=== PATIENT | female | born 1990 | race African-American/Black ===

== ENCOUNTER 2016-06-21 19:44 | Emergency (ER) | payer SELFPAY ==
[~2016-06-21] VITALS: Ht 165.1 cm; Wt 77.1 kg
[~2016-06-21 19:44] MED LIST: CIPR500T94 PO; NAPR550T PO; ONDA4TAB10 SL; PANT20TA2 PO
[2016-06-21 20:07] VITALS: BP 122/70
--- NOTE | 2016-06-21 21:07 | PHYS DOC ---
Past Medical History Past Medical History: Asthma, Bronchitis Past Surgical History: No Surgical History Alcohol Use: None Drug Use: None Adult General Chief Complaint Chief Complaint: RIB PAIN [facility] HPI Patient is a 26 year old female who presents with bilateral rib pain for one day. Denies cough, shortness of breath, chest pain, paliptations, syncope, dizziness. States pain increases with mvmt. Also request test, has had two postiive at home. LMP 04/11/16. No interventions prior to arrival. Review of Systems Review of Systems Constitutional: Denies fever or chills [] Eyes: Denies change in visual acuity, redness, or eye pain [] HENT: Denies nasal congestion or sore throat [] Respiratory: Denies cough or shortness of breath [] Cardiovascular: No additional information not addressed in HPI [] GI: Denies abdominal pain, nausea, vomiting, bloody stools or diarrhea [] : Denies dysuria or hematuria [] Musculoskeletal: Denies back pain or joint pain. Rib pain [] Integument: Denies rash or skin lesions [] Neurologic: Denies headache, focal weakness or sensory changes [] Endocrine: Denies polyuria or polydipsia [] Allergies Allergies Allergies Coded Allergies Type Severity Reaction Last Updated Verified Penicillins Allergy Intermediate 08/06/14 No Physical Exam Physical Exam Constitutional: Well developed, well nourished, no acute distress, non-toxic appearance. HENT: Normocephalic, atraumatic, bilateral external ears normal, oropharynx moist, no oral exudates, nose normal. Eyes: PERRLA, EOMI, conjunctiva normal, no discharge. Neck: Normal range of motion, no tenderness, supple, no stridor. Cardiovascular:Heart rate regular rhythm, no murmur Lungs & Thorax: Bilateral breath sounds clear to auscultation. tenderness to palpation just below both breast at bra line. Abdomen: Bowel sounds normal, soft, no tenderness, no masses, no pulsatile masses. [] Skin: Warm, dry, no erythema, no rash. [] Back: No tenderness, no CVA tenderness. [] Extremities: No tenderness, no cyanosis, no clubbing, ROM intact, no edema. [] Neurologic: Alert and oriented X 3, normal motor function, normal sensory function, no focal deficits noted. [] Psychologic: Affect normal, judgement normal, mood normal. [] Current Patient Data Vital Signs Vital Signs Date Time Temp Pulse Resp B/P Pulse Ox O2 Delivery O2 Flow Rate FiO2 06/21/16 20:07 98.2 75 16 122/70 99 Room Air 98.2 Lab Values Laboratory Tests Test 06/21/16 20:21 POC Urine HCG, Qualitative Hcg positive (Negative) EKG EKG [] Radiology/Procedures Radiology/Procedures [] Impressions: 1. RIb pain 2. Positive urine Course & Med Decision Making Course & Med Decision Making Pertinent Labs and Imaging studies reviewed. (See chart for details) [] Dragon Disclaimer Dragon Disclaimer This electronic medical record was generated, in whole or in part, using a voice recognition dictation system. Departure Departure Impression: Primary Impression: Rib pain Additional Impression: Positive urine test Disposition: HOME, SELF-CARE Condition: STABLE Referrals: NO PCP (PCP) Patient Instructions: Musculoskeletal Pain Additional Instructions: Follow up with primary doctor in 1-2 days. Return if any problems, concerns, shortness or air, chest pain. May take Tylenol as directed for pain Problem Qualifiers EDIE PINO APRN Jun 21, 2016 21:07
== END 2016-06-21 21:18 | disposition home or self-care (01) ==
LOC: ER 19:44
DX: O26.899 Other specified pregnancy related conditions, unspecified trimester (principal); R07.81 Pleurodynia; O99.519 Diseases of the respiratory system complicating pregnancy, unspecified trimester; J45.909 Unspecified asthma, uncomplicated; Z88.0 Allergy status to penicillin; Z3A.00 Weeks of gestation of pregnancy not specified
CPT/HCPCS: 81025; 99282

== ENCOUNTER 2016-07-16 16:10 | Emergency (ER) | payer SELFPAY ==
[~2016-07-16] VITALS: Ht 165.1 cm; Wt 74.8 kg
--- NOTE | 2016-07-16 17:14 | RAD ---
EXAM: Obstetric sonogram. HISTORY: Pain. TECHNIQUE: Sonographic imaging of the pelvis was performed. COMPARISON: None. FINDINGS: The uterus measures 13.0 x 9.8 x 12.0 cm. There is an intrauterine gestational sac with pole. The crown-rump length is 7.6 cm, corresponding with an estimated gestational age of 13 weeks and 5 days. The heart rate is 158 bpm. The right ovary measures 5.1 x 2.7 x 2.1 cm and demonstrates normal blood flow. The left ovary is obscured due to bowel gas. IMPRESSION: 1. Single intrauterine fetus with an estimated gestational age of 13 weeks and 5 days and heart rate of 158 bpm. 2. Obscured left ovary. 3. Unremarkable right ovary.
[2016-07-16 17:44] LABS: BASO % 0 % (0-3); EOS % 2 % (0-3); HEMATOCRIT 34.2 % (36.0-47.0); HEMOGLOBIN 11.4 g/dL (12.0-15.5); LYMPH # 2.1 x10^3/uL (1.0-4.8); LYMPH % 26 % (24-48); MEAN CORPUSCULAR HEMOGLOBIN 28 pg (25-35); MEAN CORPUSCULAR HGB CONC 33 g/dL (31-37); MEAN CORPUSCULAR VOLUME 82 fL (79-100); MONO % 5 % (0-9); NEUT % 67 % (31-73); PLATELET COUNT 271 x10^3/uL (140-400); RED BLOOD COUNT 4.15 x10^6/uL (3.50-5.40); RED CELL DISTRIBUTION WIDTH 16.6 % (11.5-14.5); WHITE BLOOD COUNT 8.3 x10^3/uL (4.0-11.0)
[2016-07-16 17:50] LABS: BILIRUBIN,URINE NEGATIVE (NEG); GLUCOSE,URINE NEGATIVE (NEG); NITRITE,URINE NEGATIVE (NEG); PROTEIN,URINE NEGATIVE (NEG-TRACE); UROBILINOGEN,URINE 0.2 mg/dL (0.2 mg/dL)
[2016-07-16 18:00] LABS: BACTERIA,URINE MODERATE /HPF (0-FEW); RBC,URINE 0 /HPF (0-2); SQUAMOUS EPITHELIAL CELL,UR MOD /LPF
[2016-07-16 18:09] LABS: CALCIUM 9.3 mg/dL (8.5-10.1); CREATININE 0.6 mg/dL (0.6-1.0); GFR 147.4; POTASSIUM 3.5 mmol/L (3.5-5.1)
[2016-07-16 18:50] VITALS: BP 107/75
[2016-07-16] MEDS ORDERED: NITR100C62 PO (19:02)
--- NOTE | 2016-07-16 19:02 | PHYS DOC ---
Past Medical History Past Medical History: Asthma, Bronchitis Past Surgical History: No Surgical History Alcohol Use: None Drug Use: None Adult General Chief Complaint Chief Complaint: ABDOMINAL PAIN IN [facility] HPI 26-year-old female who is an estimated 13 weeks gestation is had some mild lower abdominal pain that she localizes somewhat to the right lower quadrant. She denies any nausea or vomiting. She denies any fever or chills. She denies any significant dysuria or hematuria. She denies any vaginal bleeding. He has history of asthma but no known health problems otherwise. Review of Systems Review of Systems Constitutional: Denies fever or chills [] Eyes: Denies change in visual acuity, redness, or eye pain [] HENT: Denies nasal congestion or sore throat [] Respiratory: Denies cough or shortness of breath [] Cardiovascular: No additional information not addressed in HPI [] GI: Has abdominal pain, denies nausea, denies vomiting, denies bloody stools or diarrhea [] : Denies dysuria or hematuria [] Musculoskeletal: Denies back pain or joint pain [] Integument: Denies rash or skin lesions [] Neurologic: Denies headache, focal weakness or sensory changes [] Endocrine: Denies polyuria or polydipsia [] Allergies Allergies Allergies Coded Allergies Type Severity Reaction Last Updated Verified Penicillins Allergy Intermediate 08/06/14 No Physical Exam Physical Exam Constitutional: Well developed, well nourished, no acute distress, non-toxic appearance. [] HENT: Normocephalic, atraumatic, bilateral external ears normal, oropharynx moist, no oral exudates, nose normal. [] Eyes: PERRLA, EOMI, conjunctiva normal, no discharge. [] Neck: Normal range of motion, no tenderness, supple, no stridor. [] Cardiovascular:Heart rate regular rhythm, no murmur [] Lungs & Thorax: Bilateral breath sounds clear to auscultation [] Abdomen: Bowel sounds normal, soft, has right lower quadrant tenderness, no masses, no pulsatile masses. [] Skin: Warm, dry, no erythema, no rash. [] Back: No tenderness, no CVA tenderness. [] Extremities: No tenderness, no cyanosis, no clubbing, ROM intact, no edema. [] Neurologic: Alert and oriented X 3, normal motor function, normal sensory function, no focal deficits noted. [] Psychologic: Affect normal, judgement normal, mood normal. [] Current Patient Data Vital Signs Vital Signs Date Time Temp Pulse Resp B/P Pulse Ox O2 Delivery O2 Flow Rate FiO2 07/16/16 18:50 82 107/75 96 07/16/16 17:20 Room Air 07/16/16 16:26 98.1 18 98.1 Lab Values Laboratory Tests Test 07/16/16 15:56 07/16/16 16:50 07/16/16 17:30 POC Urine HCG, Qualitative Hcg positive (Negative) Urine Collection Type Unknown Urine Color Straw Urine Clarity Clear Urine pH 7.0 Urine Specific [place] <=1.005 Urine Protein Negativemg/dL (NEG-TRACE) Urine Glucose (UA) Negativemg/dL (NEG) Urine Ketones (Stick) Negativemg/dL (NEG) Urine Blood Negative (NEG) Urine Nitrite Negative (NEG) Urine Bilirubin Negative (NEG) Urine Urobilinogen Dipstick 0.2mg/dL (0.2 mg/dL) Urine Leukocyte Esterase Large (NEG) Urine RBC 0/HPF (0-2) Urine WBC 11-20/HPF (0-4) Urine Squamous Epithelial Cells Mod/LPF Urine Bacteria Moderate/HPF (0-FEW) White Blood Count 8.3x10^3/uL (4.0-11.0) Red Blood Count 4.15x10^6/uL (3.50-5.40) Hemoglobin 11.4g/dL (12.0-15.5) L Hematocrit 34.2% (36.0-47.0) L Mean Corpuscular Volume 82fL (79-100) Mean Corpuscular Hemoglobin 28pg (25-35) Mean Corpuscular Hemoglobin Concent 33g/dL (31-37) Red Cell Distribution Width 16.6% (11.5-14.5) H Platelet Count 271x10^3/uL (140-400) Neutrophils (%) (Auto) 67% (31-73) Lymphocytes (%) (Auto) 26% (24-48) Monocytes (%) (Auto) 5% (0-9) Eosinophils (%) (Auto) 2% (0-3) Basophils (%) (Auto) 0% (0-3) Neutrophils # (Auto) 5.6x10^3uL (1.8-7.7) Lymphocytes # (Auto) 2.1x10^3/uL (1.0-4.8) Monocytes # (Auto) 0.4x10^3/uL (0.0-1.1) Eosinophils # (Auto) 0.1x10^3/uL (0.0-0.7) Basophils # (Auto) 0.0x10^3/uL (0.0-0.2) Maternal Serum HCG Beta Subunit 81588sSQ/mL (0-6) H Sodium Level 137mmol/L (136-145) Potassium Level 3.5mmol/L (3.5-5.1) Chloride Level 103mmol/L (98-107) Carbon Dioxide Level 24mmol/L (21-32) Anion Gap 10 (6-14) Blood Urea Nitrogen 7mg/dL (7-20) Creatinine 0.6mg/dL (0.6-1.0) Estimated GFR (Cockcroft-Gault) 147.4 Glucose Level 106mg/dL (70-99) H Calcium Level 9.3mg/dL (8.5-10.1) Laboratory Tests 07/16/16 17:30 Laboratory Tests 07/16/16 17:30 Microbiology 07/16/16 Urine Culture - Preliminary, Resulted 07/16/16 Urine Culture Result 1 (NATHEN) - Preliminary, Resulted EKG EKG [] Radiology/Procedures Radiology/Procedures EXAM: Obstetric sonogram. HISTORY: Pain. TECHNIQUE: Sonographic imaging of the pelvis was performed. COMPARISON: None. FINDINGS: The uterus measures 13.0 x 9.8 x 12.0 cm. There is an intrauterine gestational sac with pole. The crown-rump length is 7.6 cm, corresponding with an estimated gestational age of 13 weeks and 5 days. The heart rate is 158 bpm. The right ovary measures 5.1 x 2.7 x 2.1 cm and demonstrates normal blood flow. The left ovary is obscured due to bowel gas. IMPRESSION: 1. Single intrauterine fetus with an estimated gestational age of 13 weeks and 5 days and heart rate of 158 bpm. 2. Obscured left ovary. 3. Unremarkable right ovary. Course & Med Decision Making Course & Med Decision Making Pertinent Labs and Imaging studies reviewed. (See chart for details) 26-year-old female is having lower abdominal pain and had a ultrasound that was unremarkable and a laboratory workup that was unrevealing. I'll discharge her home with strict instruction to follow with her OB doctor. Her urinalysis did show signs of infection and a prescription for Macrobid was given. I gave her strict instruction return for abdominal pain should worsen or she should develop any nausea or vomiting or fever Dragralph Disclaimer Dragon Disclaimer This electronic medical record was generated, in whole or in part, using a voice recognition dictation system. Departure Departure Impression: Primary Impression: Abdominal pain Additional Impression: Urinary tract infection Disposition: HOME, SELF-CARE Admitting Physician: Other Condition: STABLE Referrals: NO PCP (PCP) Patient Instructions: Abdominal Pain During , [id number], - Urinary Tract Infection Additional Instructions: Please take your antibiotic as prescribed and follow up closely with your OB doctor in the next 2-3 days for your symptoms. Return to the ER if your abdominal pain should worsen. Scripts Nitrofurantoin Monohyd/M-Cryst (Macrobid 100 Mg Capsule)100 Mg [id number] Mg PO BID #10 Prov:DIMITRI OLSON DO 07/16/16 Problem Qualifiers DIMITRI OLSON DO Jul 16, 2016 19:02
== END 2016-07-16 19:15 | disposition home or self-care (01) ==
LOC: ER 16:10
DX: O23.41 Unspecified infection of urinary tract in pregnancy, first trimester (principal); Z3A.13 13 weeks gestation of pregnancy; J45.909 Unspecified asthma, uncomplicated; Z88.0 Allergy status to penicillin
CPT/HCPCS: 36415; 76801; 80048; 81001; 81025; 84702; 85027; 87086; 99285-25

== ENCOUNTER 2016-08-14 01:01 | Emergency (ER) | payer SELFPAY ==
[~2016-08-14] VITALS: Ht 165.1 cm; Wt 77.1 kg
[~2016-08-14 01:01] MED LIST changes: +NITR100C62 PO
[2016-08-14 01:10] VITALS: BP 124/79
[2016-08-14] MEDS ORDERED: PROAIR HFA8.5 GM INH (01:12)
--- NOTE | 2016-08-14 01:12 | PHYS DOC ---
Past Medical History Past Medical History: Asthma, Bronchitis Past Surgical History: No Surgical History Alcohol Use: None Drug Use: None Adult General Chief Complaint Chief Complaint: COUGH HPI HPI Patient is a 26 year old female who presents with dry cough and sneezing similar prior seasonal allergies over the past few days and now with slight difficulty breathing that started this evening. States she has had symptoms like this prior and has had success with albuterol inhaler use. She denies fever or chills, hemoptysis, chest pain, diaphoresis, orthopnea, leg pain or swelling. Review of Systems Review of Systems Constitutional: Denies fever or chills [] Eyes: Denies change in visual acuity, redness, or eye pain [] HENT: Denies nasal congestion or sore throat [] Respiratory: Has cough and shortness of breath [] Cardiovascular: No additional information not addressed in HPI [] GI: Denies abdominal pain, nausea, vomiting, bloody stools or diarrhea [] : Denies dysuria or hematuria [] Musculoskeletal: Denies back pain or joint pain [] Integument: Denies rash or skin lesions [] Neurologic: Denies headache, focal weakness or sensory changes [] Endocrine: Denies polyuria or polydipsia [] Allergies Allergies Allergies Coded Allergies Type Severity Reaction Last Updated Verified Penicillins Allergy Intermediate 08/06/14 No Physical Exam Physical Exam Constitutional: Well developed, well nourished, no acute distress, non-toxic appearance. [] HENT: Normocephalic, atraumatic, bilateral external ears normal, oropharynx moist, no oral exudates, nose normal. [] Eyes: PERRLA, EOMI. [] Neck: Normal range of motion, supple, no stridor. [] Cardiovascular:Heart rate regular rhythm [] Lungs & Thorax: Bilateral breath sounds clear to auscultation. Bronchospastic cough present, dry [] Abdomen: Bowel sounds normal, soft, no tenderness. [] Skin: Warm, dry, no erythema, no rash. [] Back: Normal range of motion. [] Extremities: No tenderness, ROM intact, no edema, no palpable cord. [] Neurologic: Alert and oriented X 3, normal motor function, normal sensory function, no focal deficits noted. [] Psychologic: Affect normal, judgement normal, mood normal. [] Course & Med Decision Making Course & Med Decision Making Appears well on exam with bronchospastic cough. Will give albuterol inhaler. Discussed symptomatic management. Return precautions given. She understands and agrees with plan. Maryann Disclaimer Maryann Disclaimer This electronic medical record was generated, in whole or in part, using a voice recognition dictation system. Departure Departure Impression: Primary Impression: Cough Disposition: HOME, SELF-CARE Condition: STABLE Referrals: NO PCP (PCP) Patient Instructions: Cough, Adult, [id number] Additional Instructions: Use albuterol inhaler 2 puffs every 4 hours as needed for cough or shortness of breath. You can also use honey as needed to help with cough. Follow-up with your primary care doctor within one week. Return for any concerns. Scripts Albuterol Sulfate (Proair Hfa Inhaler)8.5 Gm Hfa.aer.ad2 Puff INH Q4HRS PRN SHORTNESS OF BREATH #1 INHALER Prov:North RAMÍREZ MD 08/14/16 North RAMÍREZ MD Aug 14, 2016 01:12
== END 2016-08-14 01:38 | disposition home or self-care (01) ==
LOC: ER 01:01
DX: R05 Cough (principal); J45.909 Unspecified asthma, uncomplicated; Z88.0 Allergy status to penicillin
CPT/HCPCS: 99283

== ENCOUNTER 2016-09-14 01:31 | Observation (INO) | payer MEDICAID, OTHER ==
[~2016-09-14 01:31] MED LIST changes: +PROAIR HFA8.5 GM INH
[2016-09-14] MEDS ORDERED: IV RINGERS,LACTATED 1000ML 1,000 ML IV SCH (01:36)
[2016-09-14 02:01] LABS: BILIRUBIN,URINE NEGATIVE (NEG); GLUCOSE,URINE NEGATIVE (NEG); NITRITE,URINE NEGATIVE (NEG); PH,URINE 6.5; PROTEIN,URINE NEGATIVE (NEG-TRACE); UROBILINOGEN,URINE 0.2 mg/dL (0.2 mg/dL)
[2016-09-14 02:08] LABS: BARBITURATES NEG (NEG); BENZODIAZEPINES NEG (NEG); CANNABINOIDS NEG (NEG); COCAINE NEG (NEG); METHADONE NEG (NEG); OPIATES NEG (NEG); PHENCYCLIDINE NEG (NEG)
[2016-09-14 02:09] LABS: BACTERIA,URINE 0 /HPF (0-FEW); RBC,URINE 0 /HPF (0-2); SQUAMOUS EPITHELIAL CELL,UR FEW /LPF
== END 2016-09-14 02:49 | disposition home or self-care (01) ==
LOC: 3 SO LND 01:31
PROVIDERS: ADMIT Obstetrics & Gynecology; ATTEND Obstetrics & Gynecology
DX: O26.892 Other specified pregnancy related conditions, second trimester (principal); R10.2 Pelvic and perineal pain; R10.30 Lower abdominal pain, unspecified; Z3A.22 22 weeks gestation of pregnancy
CPT/HCPCS: 81001; 87086; G0378; G0379; G0481

== ENCOUNTER 2016-10-26 12:39 | Observation (INO) | payer OTHER ==
[2016-10-26 13:36] LABS: NEG OBC AMNIO NEG; POS OBC AMNIO POS
== END 2016-10-26 14:10 | disposition home or self-care (01) ==
LOC: 3 SO LND 12:39
PROVIDERS: ADMIT Obstetrics & Gynecology; ATTEND Obstetrics & Gynecology
DX: O26.893 Other specified pregnancy related conditions, third trimester (principal); N89.8 Other specified noninflammatory disorders of vagina; R10.9 Unspecified abdominal pain; Z3A.28 28 weeks gestation of pregnancy
CPT/HCPCS: 36415; 84112; G0378; G0379

== ENCOUNTER 2017-02-18 00:17 | Emergency (ER) | payer OTHER ==
[~2017-02-18] VITALS: Ht 165.1 cm; Wt 68.0 kg
[~2017-02-18 00:17] MED LIST changes: +NAPR-682 PO; -NAPR550T PO
[2017-02-18 00:52] LABS: BILIRUBIN,URINE NEGATIVE (NEG); GLUCOSE,URINE NEGATIVE (NEG); NITRITE,URINE NEGATIVE (NEG); PH,URINE 6.5; PROTEIN,URINE NEGATIVE (NEG-TRACE)
[2017-02-18 01:00] LABS: BACTERIA,URINE MODERATE /HPF (0-FEW); RBC,URINE 0 /HPF (0-2); SQUAMOUS EPITHELIAL CELL,UR MANY /LPF
[2017-02-18] MEDS ORDERED: ONDANSETRON PF 4 MG/2 ML VIAL. IV ONE (01:00)
[2017-02-18] MEDS ORDERED: KETOROLAC 30 MG/ML INJ. IV ONE (01:00)
[2017-02-18 01:20] LABS: NEG OBC UR NEG; POS OBC UR POS
[2017-02-18 01:24] LABS: BASO % 1 % (0-3); EOS % 4 % (0-3); HEMATOCRIT 37.8 % (36.0-47.0); HEMOGLOBIN 12.3 g/dL (12.0-15.5); LYMPH # 2.6 x10^3/uL (1.0-4.8); LYMPH % 36 % (24-48); MEAN CORPUSCULAR HEMOGLOBIN 27 pg (25-35); MEAN CORPUSCULAR HGB CONC 33 g/dL (31-37); MEAN CORPUSCULAR VOLUME 84 fL (79-100); MONO % 8 % (0-9); NEUT % 52 % (31-73); PLATELET COUNT 308 x10^3/uL (140-400); RED BLOOD COUNT 4.48 x10^6/uL (3.50-5.40); RED CELL DISTRIBUTION WIDTH 16.5 % (11.5-14.5); WHITE BLOOD COUNT 7.4 x10^3/uL (4.0-11.0)
[2017-02-18 01:32] LABS: CALCIUM 9.1 mg/dL (8.5-10.1); CREATININE 0.6 mg/dL (0.6-1.0); GFR 146.2; POTASSIUM 3.5 mmol/L (3.5-5.1)
[2017-02-18 01:38] LABS: ALBUMIN 3.4 g/dL (3.4-5.0); ALBUMIN/GLOBULIN RATIO 0.9 (1.0-1.7); TOTAL BILIRUBIN 0.3 mg/dL (0.2-1.0); TOTAL PROTEIN 7.4 g/dL (6.4-8.2)
--- NOTE | 2017-02-18 01:55 | RAD ---
EXAM: PELVIS W/TV HISTORY: pelvic pain post COMPARISON: None. TECHNIQUE: Transverse and longitudinal sonography of the pelvis is performed utilizing transabdominal and transvaginal transducers. FINDINGS: Transabdominal imaging demonstrates an anteflexed uterus measuring 11.6 x 6.3 x 7.0 cm. Endometrial thickness measures 1.3 cm. Blood flow is documented within the right ovary. The left ovary is not visualized. Transvaginal imaging demonstrates a fairly homogenous myometrium. Endometrial thickness is measured at 4 mm. No focal abnormality is seen within the endometrium. The left ovary is visualized measuring 2.1 x 2.1 x 2.4 cm, with internal blood flow documented. The right ovary is visualized measuring 2.4 x 2.1 x 2.8 cm, with internal blood flow documented. Normal-appearing follicles are seen within both ovaries. No free fluid is seen. IMPRESSION: Normal premenopausal pelvic ultrasound. Electronically signed by: Mary Reid MD (02/18/2017 1:51 AM) [facility]
[2017-02-18] MEDS ORDERED: NITR100C62 PO (02:16)
--- NOTE | 2017-02-18 02:16 | PHYS DOC ---
Past Medical History Past Medical History: Asthma, Bronchitis Past Surgical History: No Surgical History Alcohol Use: None Drug Use: None Adult General Chief Complaint Chief Complaint: ABDOMINAL PAIN HPI HPI Patient is a 27 year old female who presents with abdominal pain & vomiting. The patient reports 1 week history of cramping lower abdominal pain associated with vomiting, 1 episode today. She denies fevers/chills, diarrhea, constipation, dysuria/hematuria, vaginal bleeding/discharge. She is 1 month from uncomplicated vaginal delivery. No ongoing bleeding. States she was sexually active yesterday. Has not yet followed up with OB after delivery. She denies history of abdominal surgeries. Review of Systems Review of Systems Constitutional: Denies fever or chills HENT: Denies nasal congestion or sore throat Respiratory: Denies cough or shortness of breath Cardiovascular: Denies chest pain GI: Reports abdominal pain, nausea, vomiting, denies bloody stools or diarrhea : Denies dysuria or hematuria Musculoskeletal: Denies back pain or joint pain Integument: Denies rash or skin lesions Neurologic: Denies headache Current Medications Current Medications Current Medications Medications (Trade) Dose Ordered Sig/Susana Start Time Stop Time Status Last Admin Dose Admin Ketorolac Tromethamine (Toradol) 30 mg 1X ONCE 02/18/17 01:00 02/18/17 01:01 DC 02/18/17 01:23 30 MG Nitrofurantoin Macrocrystals (Macrobid) 100 mg 1X ONCE 02/18/17 02:30 02/18/17 02:31 Ondansetron HCl (Zofran) 4 mg 1X ONCE 02/18/17 01:00 02/18/17 01:01 DC 02/18/17 01:23 4 MG Allergies Allergies Allergies Coded Allergies Type Severity Reaction Last Updated Verified Penicillins Allergy Intermediate 08/06/14 No Physical Exam Physical Exam Constitutional: Well developed, well nourished, no acute distress, non-toxic appearance. HENT: Normocephalic, atraumatic, bilateral external ears normal, oropharynx moist, nose normal. Eyes: conjunctiva normal, no discharge. Neck: supple, no stridor. Cardiovascular: RRR, no murmurs, no edema. Lungs & Thorax: LCTAB, no wheezing, no respiratory distress. Abdomen: soft, mild suprapubic tenderness without rebound/guarding, no RLQ tenderness, no masses or pulsatile masses, nondistended. Skin: Warm, dry, no erythema, no rash. Back: No CVA tenderness. Extremities: No tenderness, no edema. Neurologic: Alert and oriented X 3, no focal deficits noted. Psychologic: Affect normal, judgement normal, mood normal. Current Patient Data Vital Signs Vital Signs Date Time Temp Pulse Resp B/P (MAP) Pulse Ox O2 Delivery O2 Flow Rate FiO2 02/18/17 00:54 98.5 80 18 130/87 (101) 98 Room Air 98.5 Lab Values Laboratory Tests Test 02/18/17 00:20 02/18/17 01:15 Urine Collection Type Unknown Urine Color Yellow Urine Clarity Clear Urine pH 6.5 Urine Specific [place] 1.025 Urine Protein Negative mg/dL (NEG-TRACE) Urine Glucose (UA) Negative mg/dL (NEG) Urine Ketones (Stick) Negative mg/dL (NEG) Urine Blood Negative (NEG) Urine Nitrite Negative (NEG) Urine Bilirubin Negative (NEG) Urine Urobilinogen Dipstick 1.0 mg/dL (0.2 mg/dL) Urine Leukocyte Esterase Moderate (NEG) Urine RBC 0 /HPF (0-2) Urine WBC 11-20 /HPF (0-4) Urine Squamous Epithelial Cells Many /LPF Urine Bacteria Moderate /HPF (0-FEW) Urine Mucus Marked /LPF Urine Test Negative (NEG) White Blood Count 7.4 x10^3/uL (4.0-11.0) Red Blood Count 4.48 x10^6/uL (3.50-5.40) Hemoglobin 12.3 g/dL (12.0-15.5) Hematocrit 37.8 % (36.0-47.0) Mean Corpuscular Volume 84 fL (79-100) Mean Corpuscular Hemoglobin 27 pg (25-35) Mean Corpuscular Hemoglobin Concent 33 g/dL (31-37) Red Cell Distribution Width 16.5 % (11.5-14.5) H Platelet Count 308 x10^3/uL (140-400) Neutrophils (%) (Auto) 52 % (31-73) Lymphocytes (%) (Auto) 36 % (24-48) Monocytes (%) (Auto) 8 % (0-9) Eosinophils (%) (Auto) 4 % (0-3) H Basophils (%) (Auto) 1 % (0-3) Neutrophils # (Auto) 3.8 x10^3uL (1.8-7.7) Lymphocytes # (Auto) 2.6 x10^3/uL (1.0-4.8) Monocytes # (Auto) 0.6 x10^3/uL (0.0-1.1) Eosinophils # (Auto) 0.3 x10^3/uL (0.0-0.7) Basophils # (Auto) 0.0 x10^3/uL (0.0-0.2) Sodium Level 143 mmol/L (136-145) Potassium Level 3.5 mmol/L (3.5-5.1) Chloride Level 105 mmol/L (98-107) Carbon Dioxide Level 30 mmol/L (21-32) Anion Gap 8 (6-14) Blood Urea Nitrogen 12 mg/dL (7-20) Creatinine 0.6 mg/dL (0.6-1.0) Estimated GFR (Cockcroft-Gault) 146.2 BUN/Creatinine Ratio 20 (6-20) Glucose Level 88 mg/dL (70-99) Calcium Level 9.1 mg/dL (8.5-10.1) Total Bilirubin 0.3 mg/dL (0.2-1.0) Aspartate Amino Transferase (AST) 25 U/L (15-37) Alanine Aminotransferase (ALT) 49 U/L (14-59) Alkaline Phosphatase 110 U/L (46-116) Total Protein 7.4 g/dL (6.4-8.2) Albumin 3.4 g/dL (3.4-5.0) Albumin/Globulin Ratio 0.9 (1.0-1.7) L Lipase 241 U/L (73-393) Laboratory Tests 02/18/17 01:15 Laboratory Tests 02/18/17 01:15 EKG EKG [] Radiology/Procedures Radiology/Procedures PROCEDURE: PELVIS W/TV EXAM: PELVIS W/TV HISTORY: pelvic pain post COMPARISON: None. TECHNIQUE: Transverse and longitudinal sonography of the pelvis is performed utilizing transabdominal and transvaginal transducers. FINDINGS: Transabdominal imaging demonstrates an anteflexed uterus measuring 11.6 x 6.3 x 7.0 cm. Endometrial thickness measures 1.3 cm. Blood flow is documented within the right ovary. The left ovary is not visualized. Transvaginal imaging demonstrates a fairly homogenous myometrium. Endometrial thickness is measured at 4 mm. No focal abnormality is seen within the endometrium. The left ovary is visualized measuring 2.1 x 2.1 x 2.4 cm, with internal blood flow documented. The right ovary is visualized measuring 2.4 x 2.1 x 2.8 cm, with internal blood flow documented. Normal-appearing follicles are seen within both ovaries. No free fluid is seen. IMPRESSION: Normal premenopausal pelvic ultrasound. Electronically signed by: Benoit Villanueva MD (02/18/2017 1:51 AM) [facility] DICTATED and SIGNED BY: BENOIT VILLANUEVA MD DATE: 02/18/17 0148[] Course & Med Decision Making Course & Med Decision Making Pertinent Labs and Imaging studies reviewed. (See chart for details) The patient presents with abdominal pain & vomiting. UA shows UTI. US negative for retained products. She is well appearing with stable vitals. Recommend rest, hydration, tylenol/ibuprofen for pain, gave macrobid for UTI ( penicillin allergy). She is . Typically would recommend pelvic rest x 6 weeks after delivery. Follow up with OB in 2-3 days. Come back for high fever, severe pain, uncontrolled vomiting, any otherwise worsening condition. Discharged home in stable condition. [] Dragon Disclaimer Dragon Disclaimer This electronic medical record was generated, in whole or in part, using a voice recognition dictation system. Departure Departure Impression: Primary Impression: Urinary tract infection Disposition: 01 HOME, SELF-CARE Condition: STABLE Referrals: NO PCP (PCP) Patient Instructions: Urinary Tract Infection, [id number] Additional Instructions: You were seen in the emergency department today for abdominal pain. You have a urinary tract infection. Please rest, drink fluids, take tylenol or ibuprofen for pain. Take prescribed antibiotic. Follow up with primary care or OB in 2-3 days if not improving. come back for high fever, severe pain, uncontrolled vomiting, any otherwise worsening condition. Scripts Nitrofurantoin Monohyd/M-Cryst (MACROBID 100 MG CAPSULE) 100 Mg Capsule 1 CAP PO BID, #[id number] CAP Prov: IAN ORTIZ MD 02/18/17 IAN ORTIZ MD Feb 18, 2017 02:16
[2017-02-18 02:28] VITALS: BP 115/58
[2017-02-18] MEDS ORDERED: NITROFURANTOIN MONOHYD/M-CRYST 100 MG CAPSULE. PO ONE (02:30)
== END 2017-02-18 02:35 | disposition home or self-care (01) ==
LOC: ER 00:17
DX: O90.89 Other complications of the puerperium, not elsewhere classified (principal); O86.20 Urinary tract infection following delivery, unspecified; O99.53 Diseases of the respiratory system complicating the puerperium; J45.909 Unspecified asthma, uncomplicated; Z88.0 Allergy status to penicillin
CPT/HCPCS: 36415; 76830; 76856; 80053; 81001; 81025; 83690; 85025; 87086; 96374; 96375; 99285; J1885; J2405

== ENCOUNTER 2017-03-10 19:27 | Emergency (ER) | payer OTHER ==
[~2017-03-10] VITALS: Ht 165.1 cm; Wt 76.7 kg
[2017-03-10 19:35] VITALS: BP 140/71
--- NOTE | 2017-03-10 20:42 | PHYS DOC ---
Past Medical History Past Medical History: Asthma, Bronchitis Past Surgical History: No Surgical History Alcohol Use: None Drug Use: None Adult General Chief Complaint Chief Complaint: FOOT INJURY PAIN HPI HPI Patient is a 27 year old female who presents complaining of left medial foot pain that began today when she stepped out of the shower and twisted her left foot. Patient denies falling. Patient states her pain is mild and worse on ambulation. She describes the pain as sharp. Review of Systems Review of Systems Constitutional: Denies fever or chills [] Musculoskeletal: Left medial foot pain Integument: Denies rash or skin lesions [] Neurologic: Denies headache, focal weakness or sensory changes [] All other systems were reviewed and found to be within normal limits, except as documented in this note. Allergies Allergies Allergies Coded Allergies Type Severity Reaction Last Updated Verified Penicillins Allergy Intermediate 08/06/14 No Physical Exam Physical Exam Constitutional: Well developed, well nourished, no acute distress, non-toxic appearance. [] Skin: Warm, dry, no erythema, no rash. [] Back: No tenderness, no CVA tenderness. [] Extremities: Left foot and left ankle with no obvious deformity. Tenderness on palpation of the left foot and ankle. Full range of motion to the left foot and toes. +2 left pedal pulse. No navicular bone tenderness or base of the fifth metatarsal tenderness. Cap refill less than 2 seconds left toes. Sensation intact to the left lower extremity. Neurologic: Alert and oriented X 3, normal motor function, normal sensory function, no focal deficits noted. [] Psychologic: Affect normal, judgement normal, mood normal. [] Current Patient Data Vital Signs Vital Signs Date Time Temp Pulse Resp B/P (MAP) Pulse Ox O2 Delivery O2 Flow Rate FiO2 03/10/17 19:35 98.3 75 18 99 Room Air 98.3 EKG EKG [] Radiology/Procedures Radiology/Procedures [] Course & Med Decision Making Course & Med Decision Making Pertinent Labs and Imaging studies reviewed. (See chart for details) Patient is in the ED with complaints of left foot pain after twisting it. Left foot x-rays interpreted by Dr. Price was negative for any acute findings. Patient was provided an orthopedic shoe in the ED by limited radiology technician, neurovascular exam is intact. Ice elevation encouraged. Follow-up with orthopedic doctor in one week Maryann Disclaimer Maryann Disclaimer This electronic medical record was generated, in whole or in part, using a voice recognition dictation system. Departure Departure Impression: Primary Impression: Sprain of left foot Disposition: 01 HOME, SELF-CARE Condition: STABLE Referrals: NO PCP (PCP) VINEET MOYER MD follow up in one week Patient Instructions: Foot Sprain-Brief Additional Instructions: You were seen for left foot sprain. Ice elevate the extremity. Take over-the- counter pain medicines as needed for pain. Follow-up with the provided orthopedic doctor in one week. Problem Qualifiers Primary Impression: Sprain of left foot Encounter type: initial encounter Qualified Codes: S93.602A - Unspecified sprain of left foot, initial encounter MARY LEYVA MICROSOFT ACCESS DEVELOPER Mar 10, 2017 20:42
--- NOTE | 2017-03-11 08:21 | RAD ---
EXAM: Left foot 3 views. HISTORY: Fall with left foot pain. COMPARISON: None. FINDINGS: No fractures are identified. There is mild hallux valgus. Joint spaces are maintained. There is a bone island versus a small focus of melorheostosis within the 1st distal phalanx medially. IMPRESSION: 1. No fracture. Mild hallux valgus.
== END 2017-03-10 20:45 | disposition home or self-care (01) ==
LOC: ER 19:27
DX: S93.602A Unspecified sprain of left foot, initial encounter (principal); J45.909 Unspecified asthma, uncomplicated; Z88.0 Allergy status to penicillin; X58.XXXA Exposure to other specified factors, initial encounter; Y93.89 Activity, other specified; Y92.89 Other specified places as the place of occurrence of the external cause; Y99.8 Other external cause status
CPT/HCPCS: 73630; 99284

== ENCOUNTER 2017-05-14 00:09 | Emergency (ER) | payer OTHER | END 2017-05-14 00:45 | disposition home or self-care (01) | LOC: ER 00:09 | DX: S39.012A Strain of muscle, fascia and tendon of lower back, initial encounter (principal); J45.909 Unspecified asthma, uncomplicated; Z88.0 Allergy status to penicillin; X58.XXXA Exposure to other specified factors, initial encounter; Y93.89 Activity, other specified; Y92.009 Unspecified place in unspecified non-institutional (private) residence as the place of occurrence of the external cause; Y99.8 Other external cause status | CPT/HCPCS: 99283 ==

== ENCOUNTER 2017-06-14 22:15 | Emergency (ER) | payer OTHER ==
[2017-06-14] MEDS: IV NORMAL SALINE 1000ML BAG 1,000 ML IV (22:30)
[2017-06-14 22:36] LABS: ADD MAN DIFF? NO
[2017-06-14 22:37] LABS: BASO % 1 % (0-3); EOS # 0.1 x10^3/uL (0.0-0.7); EOS % 3 % (0-3); HEMATOCRIT 35.5 % (36.0-47.0); HEMOGLOBIN 11.8 g/dL (12.0-15.5); LYMPH % 44 % (24-48); MEAN CORPUSCULAR HEMOGLOBIN 30 pg (25-35); MEAN CORPUSCULAR HGB CONC 33 g/dL (31-37); MEAN CORPUSCULAR VOLUME 90 fL (79-100); MONO # 0.6 x10^3/uL (0.0-1.1); MONO % 13 % (0-9); NEUT # 1.9 x10^3uL (1.8-7.7); NEUT % 40 % (31-73); PLATELET COUNT 299 x10^3/uL (140-400); RED BLOOD COUNT 3.94 x10^6/uL (3.50-5.40); RED CELL DISTRIBUTION WIDTH 13.5 % (11.5-14.5); WHITE BLOOD COUNT 4.7 x10^3/uL (4.0-11.0)
[2017-06-14 22:39] LABS: BILIRUBIN,URINE SMALL (NEG); CLARITY,URINE CLOUDY; COLOR,URINE AMBER; GLUCOSE,URINE NEGATIVE (NEG); NITRITE,URINE NEGATIVE (NEG); PROTEIN,URINE NEGATIVE (NEG-TRACE)
[2017-06-14 22:39] LABS: URINE HCG POC HCG NEGATIVE (Negative)
[2017-06-14 22:44] LABS: BACTERIA,URINE MANY /HPF (0-FEW); RBC,URINE 0 /HPF (0-2); SQUAMOUS EPITHELIAL CELL,UR MANY /LPF; WBC,URINE 20-40 /HPF (0-4)
[2017-06-14 22:48] LABS: ANION GAP 8 (6-14); BLOOD UREA NITROGEN 10 mg/dL (7-20); BUN/CREATININE RATIO 14 (6-20); CALCIUM 8.8 mg/dL (8.5-10.1); CARBON DIOXIDE 29 mmol/L (21-32); CHLORIDE 102 mmol/L (98-107); CREATININE 0.7 mg/dL (0.6-1.0); GFR 122.4; GLUCOSE 83 mg/dL (70-99); SODIUM 139 mmol/L (136-145)
[2017-06-14] MEDS: ONDANSETRON PF 4 MG/2 ML VIAL. IV (22:55)
[2017-06-14] MEDS: MECLIZINE HCL 12.5 MG TABLET. PO (22:55)
[2017-06-14 22:58] LABS: ALBUMIN 3.6 g/dL (3.4-5.0); ALBUMIN/GLOBULIN RATIO 0.8 (1.0-1.7); ALK PHOS 146 U/L (46-116); ALT (SGPT) 48 U/L (14-59); AST (SGOT) 33 U/L (15-37); TOTAL BILIRUBIN 0.3 mg/dL (0.2-1.0); TOTAL PROTEIN 8.1 g/dL (6.4-8.2)
== END 2017-06-14 23:47 | disposition home or self-care (01) ==
LOC: ER 22:15
DX: R42 Dizziness and giddiness (principal); N39.0 Urinary tract infection, site not specified; J45.909 Unspecified asthma, uncomplicated; Z90.49 Acquired absence of other specified parts of digestive tract
CPT/HCPCS: 36415; 70450; 80053; 81001; 81025; 85025; 87086; 93005; 96361; 96374; 99285-25; J2405; J7030; J8597

== ENCOUNTER 2017-08-18 20:49 | Emergency (ER) | payer OTHER | END 2017-08-18 22:03 | disposition home or self-care (01) | LOC: ER 20:49 | DX: J40 Bronchitis, not specified as acute or chronic (principal); Z90.49 Acquired absence of other specified parts of digestive tract; Z88.0 Allergy status to penicillin | CPT/HCPCS: 99283 ==

== ENCOUNTER 2017-09-29 16:59 | Emergency (ER) | payer OTHER ==
[2017-09-29] MEDS: diphenhydrAMINE HCL 25 MG CAPSULE PO (17:24)
[2017-09-29] MEDS: KETOROLAC 60 MG/2 ML INJ. IM (17:24)
[2017-09-29] MEDS: METOCLOPRAMIDE 10 MG TABLET. PO (17:24)
[2017-09-29] MEDS: predniSONE 10 MG TABLET PO (17:25)
== END 2017-09-29 18:15 | disposition home or self-care (01) ==
LOC: ER 18:15
DX: R51 Headache (principal); J45.909 Unspecified asthma, uncomplicated; Z88.0 Allergy status to penicillin
CPT/HCPCS: 96372; 99284; J1885; J7512; J8597; Q0163

== ENCOUNTER 2017-11-18 20:21 | Emergency (ER) | payer OTHER ==
[2017-11-18 21:00] LABS: ADD MAN DIFF? NO
[2017-11-18] MEDS: diphenhydrAMINE 50 MG/ML VIAL IVP (21:03)
[2017-11-18] MEDS: METOCLOPRAMIDE HCL 10 MG/2 ML VIAL. IV (21:03)
[2017-11-18] MEDS: IV NORMAL SALINE 1000ML BAG 1,000 ML IV (21:03)
[2017-11-18 21:10] LABS: BASO % 1 % (0-3); EOS # 0.2 x10^3/uL (0.0-0.7); EOS % 3 % (0-3); HEMATOCRIT 33.9 % (36.0-47.0); HEMOGLOBIN 10.9 g/dL (12.0-15.5); LYMPH # 2.6 x10^3/uL (1.0-4.8); LYMPH % 42 % (24-48); MEAN CORPUSCULAR HEMOGLOBIN 26 pg (25-35); MEAN CORPUSCULAR HGB CONC 32 g/dL (31-37); MEAN CORPUSCULAR VOLUME 79 fL (79-100); MONO # 0.4 x10^3/uL (0.0-1.1); MONO % 7 % (0-9); NEUT # 2.9 x10^3uL (1.8-7.7); NEUT % 47 % (31-73); PLATELET COUNT 361 x10^3/uL (140-400); RED BLOOD COUNT 4.27 x10^6/uL (3.50-5.40); RED CELL DISTRIBUTION WIDTH 16.4 % (11.5-14.5); WHITE BLOOD COUNT 6.1 x10^3/uL (4.0-11.0)
[2017-11-18 21:16] LABS: URINE HCG POC HCG NEGATIVE (Negative)
[2017-11-18 21:19] LABS: BILIRUBIN,URINE NEGATIVE (NEG); CLARITY,URINE CLEAR; COLOR,URINE YELLOW; GLUCOSE,URINE NEGATIVE (NEG); NITRITE,URINE NEGATIVE (NEG); PH,URINE 7.5; PROTEIN,URINE NEGATIVE (NEG-TRACE)
[2017-11-18 21:20] LABS: ANION GAP 9 (6-14); BLOOD UREA NITROGEN 13 mg/dL (7-20); BUN/CREATININE RATIO 16 (6-20); CALCIUM 8.9 mg/dL (8.5-10.1); CARBON DIOXIDE 28 mmol/L (21-32); CHLORIDE 104 mmol/L (98-107); CREATININE 0.8 mg/dL (0.6-1.0); GFR 104.9; GLUCOSE 84 mg/dL (70-99); POTASSIUM 3.6 mmol/L (3.5-5.1); SODIUM 141 mmol/L (136-145)
[2017-11-18 21:25] LABS: ALBUMIN 3.8 g/dL (3.4-5.0); ALBUMIN/GLOBULIN RATIO 0.9 (1.0-1.7); ALK PHOS 131 U/L (46-116); ALT (SGPT) 21 U/L (14-59); AST (SGOT) 19 U/L (15-37); BACTERIA,URINE MANY /HPF (0-FEW); RBC,URINE 0 /HPF (0-2); TOTAL BILIRUBIN 0.2 mg/dL (0.2-1.0); TOTAL PROTEIN 8.2 g/dL (6.4-8.2)
[2017-11-18 21:26] LABS: SQUAMOUS EPITHELIAL CELL,UR MANY /LPF
[2017-11-18] MEDS: KETOROLAC 30 MG/ML INJ. IV (22:30)
[2017-11-18] MEDS ORDERED: KETOROLAC 60 MG/2 ML INJ. IM (22:31)
== END 2017-11-19 00:13 | disposition home or self-care (01) ==
LOC: ER 11-19 00:13
DX: R51 Headache (principal); Z90.49 Acquired absence of other specified parts of digestive tract; Z88.0 Allergy status to penicillin
CPT/HCPCS: 36415; 70450; 80053; 81001; 81025; 85025; 87086; 96374; 96375; 99285-25; J1200; J1885; J2765; J7030

== ENCOUNTER 2018-03-08 00:19 | Emergency (ER) | payer OTHER ==
[~2018-03-08] VITALS: Ht 165.1 cm; Wt 78.0 kg
[~2018-03-08 00:19] MED LIST changes: +HYDR-3164 PO; +METH4TAB2 PO; +SULF1TAB24 PO; +TRAM50TA PO
[2018-03-08 00:20] VITALS: BP 121/86
--- NOTE | 2018-03-08 00:53 | PHYS DOC ---
Past Medical History Past Medical History: No Pertinent History Additional Past Medical Histor: seasonal allergies Past Surgical History: Cholecystectomy Alcohol Use: Occasionally Drug Use: None Adult General Chief Complaint Chief Complaint: RIB PAIN HPI HPI Patient is a 28 year old female who presents with rib pain that increases with deep inspiration or movement. She denies any coughing, shortness of air, radiation of pain, diaphoresis or history of cardiac incidents. She denies GERD. She does not have a known injury. Review of Systems Review of Systems Constitutional: Denies fever or chills [] Eyes: Denies change in visual acuity, redness, or eye pain [] HENT: Denies nasal congestion or sore throat [] Respiratory: Denies cough or shortness of breath [] Cardiovascular: No additional information not addressed in HPI [] GI: Denies abdominal pain, nausea, vomiting, bloody stools or diarrhea [] : Denies dysuria or hematuria [] Musculoskeletal: Denies back pain or joint pain [] Integument: Denies rash or skin lesions [] Neurologic: Denies headache, focal weakness or sensory changes [] Endocrine: Denies polyuria or polydipsia [] All other systems were reviewed and found to be within normal limits, except as documented in this note. Allergies Allergies Allergies Coded Allergies Type Severity Reaction Last Updated Verified Penicillins Allergy Intermediate 08/06/14 No Physical Exam Physical Exam Constitutional: Well developed, well nourished, no acute distress, non-toxic appearance. [] HENT: Normocephalic, atraumatic, bilateral external ears normal, oropharynx moist, no oral exudates, nose normal. [] Eyes: PERRLA, EOMI, conjunctiva normal, no discharge. [] Neck: Normal range of motion, no tenderness, supple, no stridor. [] Cardiovascular:Heart rate regular rhythm, no murmur [] Lungs & Thorax: Bilateral breath sounds clear to auscultation [] Abdomen: Bowel sounds normal, soft, no tenderness, no masses, no pulsatile masses. [] Neurologic: Alert and oriented X 3, normal motor function, normal sensory function, no focal deficits noted. [] Psychologic: Affect normal, judgement normal, mood normal. [] Current Patient Data Vital Signs Vital Signs Date Time Temp Pulse Resp B/P (MAP) Pulse Ox O2 Delivery O2 Flow Rate FiO2 03/08/18 00:20 98.6 76 16 121/86 (98) 99 Room Air 98.6 EKG EKG [] Radiology/Procedures Radiology/Procedures []No acute cardiopulmonary process noted on x-ray. This x-ray was read by Dr. Clayton in the emergency department. Course & Med Decision Making Course & Med Decision Making Pertinent Labs and Imaging studies reviewed. (See chart for details) [] Dragon Disclaimer Dragon Disclaimer This electronic medical record was generated, in whole or in part, using a voice recognition dictation system. Departure Departure Impression: Primary Impression: Rib pain Disposition: HOME, SELF-CARE Condition: STABLE Referrals: NO PCP (PCP) Patient Instructions: Chest Wall Pain Additional Instructions: Take ibuprofen or Tylenol for pain. Follow-up with your primary care provider in 3 days if not improving or return to the emergency department if worsening. Increase fluids and rest and use a humidifier to increase the moisture content in your home. DEIRDRE DOMÍNGUEZ APRN Mar 08, 2018 00:53
--- NOTE | 2018-03-08 03:32 | EKG ---
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
--- NOTE | 2018-03-08 08:17 | RAD ---
EXAM: CHEST PA LATERAL DATE: 03/08/2018 12:34 AM INDICATION: rib upper chest pain COMPARISON: No Prior FINDINGS: The heart is not enlarged. Mediastinal and hilar contours are normal. No focal parenchymal airspace opacity. No pleural effusion or pneumothorax. IMPRESSION: 1. No radiographic evidence for acute cardiopulmonary process. Electronically signed by: Charlie Hook MD (03/08/2018 8:14 AM) [facility]
== END 2018-03-08 00:56 | disposition home or self-care (01) ==
LOC: ER 00:19
DX: R07.81 Pleurodynia (principal); Z90.49 Acquired absence of other specified parts of digestive tract; Z88.0 Allergy status to penicillin
CPT/HCPCS: 71046; 93005; 99284

== ENCOUNTER 2018-10-07 18:58 | Observation (INO) | payer OTHER ==
[~2018-10-07 18:58] MED LIST changes: +ALBU2.5V8 INH; -PROAIR HFA8.5 GM INH
[2018-10-07 19:27] LABS: BILIRUBIN,URINE NEGATIVE (NEG); CLARITY,URINE CLEAR; COLOR,URINE YELLOW; NITRITE,URINE NEGATIVE (NEG); PH,URINE 7.5; PROTEIN,URINE NEGATIVE (NEG-TRACE)
[2018-10-07] MEDS ORDERED: IV RINGERS,LACTATED 1000ML 1,000 ML IV SCH (19:30)
[2018-10-07 19:38] LABS: BARBITURATES NEG (NEG); BENZODIAZEPINES NEG (NEG); CANNABINOIDS NEG (NEG); COCAINE NEG (NEG); METHADONE NEG (NEG); OPIATES NEG (NEG); PHENCYCLIDINE NEG (NEG)
[2018-10-07 19:40] LABS: AMPHETAMINE/METHAMPHETAMINE NEG (NEG); BACTERIA,URINE MANY /HPF (0-FEW); RBC,URINE OCC /HPF (0-2); WBC,URINE TNTC /HPF (0-4)
[2018-10-07 19:41] LABS: SQUAMOUS EPITHELIAL CELL,UR MOD /LPF
== END 2018-10-07 20:05 | disposition home or self-care (01) ==
LOC: 3 SO LND 18:58
PROVIDERS: ADMIT Obstetrics & Gynecology; ATTEND Obstetrics & Gynecology
DX: O21.2 Late vomiting of pregnancy (principal); O26.893 Other specified pregnancy related conditions, third trimester; R10.9 Unspecified abdominal pain; Z3A.29 29 weeks gestation of pregnancy
CPT/HCPCS: 80307; 81001; 87086; G0378; G0379

== ENCOUNTER 2018-12-15 00:28 | Emergency (ER) | payer OTHER ==
[~2018-12-15] VITALS: Ht 165.1 cm; Wt 78.9 kg
[2018-12-15] MEDS ORDERED: IV NORMAL SALINE 1000ML BAG 1,000 ML IV ONE (01:00)
[2018-12-15] MEDS ORDERED: DEXAMETHASONE SOD PHOS 20 MG/5 ML VIAL. IV ONE (01:15)
[2018-12-15] MEDS ORDERED: KETOROLAC 15 MG/ML VIAL. IV ONE (01:15)
[2018-12-15] MEDS ORDERED: diphenhydrAMINE 50 MG/ML VIAL IVP ONE (01:15)
[2018-12-15] MEDS ORDERED: METOCLOPRAMIDE HCL 10 MG/2 ML VIAL. IV ONE (01:15)
[2018-12-15 02:50] VITALS: BP 139/61
[2018-12-15] MEDS ORDERED: ONDA4TAB12 PO (02:53)
[2018-12-15] MEDS ORDERED: BUTA1TAB23 PO (02:53)
--- NOTE | 2018-12-15 02:53 | PHYS DOC ---
Past Medical History Past Medical History: No Pertinent History Additional Past Medical Histor: seasonal allergies Past Surgical History: Cholecystectomy Alcohol Use: Occasionally Drug Use: None Adult General Chief Complaint Chief Complaint: HEADACHE HPI HPI Patient is a 28 year old [f__sex] who presents with [] Review of Systems Review of Systems Constitutional: Denies fever or chills [] Eyes: Denies change in visual acuity, redness, or eye pain [] HENT: Denies nasal congestion or sore throat [] Respiratory: Denies cough or shortness of breath [] Cardiovascular: No additional information not addressed in HPI [] GI: Denies abdominal pain, nausea, vomiting, bloody stools or diarrhea [] : Denies dysuria or hematuria [] Musculoskeletal: Denies back pain or joint pain [] Integument: Denies rash or skin lesions [] Neurologic: Denies headache, focal weakness or sensory changes [] Endocrine: Denies polyuria or polydipsia [] All other systems were reviewed and found to be within normal limits, except as documented in this note. Current Medications Current Medications Current Medications Medications (Trade) Dose Ordered Sig/Susana Start Time Stop Time Status Last Admin Dose Admin Dexamethasone Sodium Phosphate (Decadron) 10 mg 1X ONCE 12/15/18 01:15 12/15/18 01:16 DC 12/15/18 01:34 10 MG Diphenhydramine HCl (Benadryl) 50 mg 1X ONCE 12/15/18 01:15 12/15/18 01:16 DC 12/15/18 01:37 50 MG Ketorolac Tromethamine (Toradol 15mg Vial) 15 mg 1X ONCE 12/15/18 01:15 12/15/18 01:16 DC 12/15/18 01:37 15 MG Lorazepam (Ativan Inj) 1 mg 1X ONCE 12/15/18 02:00 12/15/18 02:01 DC 12/15/18 01:58 1 MG Metoclopramide HCl (Reglan Vial) 10 mg 1X ONCE 12/15/18 01:15 12/15/18 01:16 DC 12/15/18 01:27 10 MG Sodium Chloride 1,000 ml @ 1,000 mls/hr 1X ONCE 12/15/18 01:00 12/15/18 01:59 DC 12/15/18 01:24 1,000 MLS/HR Allergies Allergies Allergies Coded Allergies Type Severity Reaction Last Updated Verified Penicillins Allergy Intermediate 08/06/14 No Physical Exam Physical Exam Constitutional: Well developed, well nourished, no acute distress, non-toxic appearance. [] HENT: Normocephalic, atraumatic, bilateral external ears normal, oropharynx moist, no oral exudates, nose normal. [] Eyes: PERRLA, EOMI, conjunctiva normal, no discharge. [] Neck: Normal range of motion, no tenderness, supple, no stridor. [] Cardiovascular:Heart rate regular rhythm, no murmur [] Lungs & Thorax: Bilateral breath sounds clear to auscultation [] Abdomen: Bowel sounds normal, soft, no tenderness, no masses, no pulsatile masses. [] Skin: Warm, dry, no erythema, no rash. [] Back: No tenderness, no CVA tenderness. [] Extremities: No tenderness, no cyanosis, no clubbing, ROM intact, no edema. [] Neurologic: Alert and oriented X 3, normal motor function, normal sensory function, no focal deficits noted. [] Psychologic: Affect normal, judgement normal, mood normal. [] Current Patient Data Vital Signs Vital Signs Date Time Temp Pulse Resp B/P (MAP) Pulse Ox O2 Delivery O2 Flow Rate FiO2 12/15/18 02:50 68 12 98 12/15/18 00:42 97.9 158/96 (116) Room Air 97.9 EKG EKG [] Radiology/Procedures Radiology/Procedures [] Course & Med Decision Making Course & Med Decision Making Pertinent Labs and Imaging studies reviewed. (See chart for details) [] Dragon Disclaimer Dragon Disclaimer This electronic medical record was generated, in whole or in part, using a voice recognition dictation system. Departure Departure Impression: Primary Impression: Headache Disposition: HOME, SELF-CARE Condition: IMPROVED Referrals: NO PCP (PCP) Patient Instructions: Headache, FAQs Additional Instructions: Increase fluid hydration. Scripts Ondansetron (ONDANSETRON ODT) 4 Mg Tab.rapdis 1 TAB PO PRN Q6-8HRS PRN for NAUSEA, #16 TAB Prov: CHERRIE HENDRICKSON Bishop DO 12/15/18 Butalb/Acetaminophen/Caffeine ([id number] 50-325-40) 1 Each Tablet 1 EACH PO Q6HRS PRN for HEADACHE, #14 TAB Prov: CHERRIE HENDRICKSON DO 12/15/18 Problem Qualifiers Primary Impression: Headache Headache type: unspecified Headache chronicity pattern: acute headache Intractability: intractable Qualified Codes: R51 - Headache CHERRIE HENDRICKSON DO Dec 15, 2018 02:53
== END 2018-12-15 03:04 | disposition home or self-care (01) ==
LOC: ER 00:28
DX: R51 Headache (principal); Z90.49 Acquired absence of other specified parts of digestive tract; Z88.0 Allergy status to penicillin
CPT/HCPCS: 96374; 96375; 99284; J1100; J1200; J1885; J2060; J2765; J7030

== ENCOUNTER 2020-01-06 17:55 | Emergency (ER) | payer OTHER ==
[~2020-01-06] VITALS: Ht 165.1 cm; Wt 80.4 kg
[~2020-01-06 17:55] MED LIST changes: +BUTA1TAB23 PO; +ONDA4TAB12 PO
[2020-01-06 20:01] VITALS: BP 129/82
[2020-01-06] MEDS ORDERED: BACI1PAC4 TP (20:08)
--- NOTE | 2020-01-06 20:09 | PHYS DOC ---
Past Medical History Additional Past Medical Histor: seasonal allergies (LI RAMIREZ DINKEY ENGINE FIRER/FIREMAN) Past Surgical History: Cholecystectomy (LI RAMIREZ APRN) Smoking Status: Never Smoker Alcohol Use: Occasionally Drug Use: None (LI ARMIREZ APRN) General Adult EDM: Chief Complaint: HAND PROBLEM HPI: HPI: Patient is a 29 year old female who presents with using Carrillo her legs tonight when the right tip of her ring finger, left fourth and fifth finger tip began to burn and crack. She states that she immediately used soap and water and washed everything off. Her last tetanus was a year ago. She states that the areas burn. There is no swelling or signs of infection. The areas on the tips of her fingers are slightly cracked open and are superficial. There is no bleeding. Patient has full range of motion of all of her finger joints. She denies any numbness or tingling. Radial pulses are strong and present. Cap refill less than 3 seconds. No swelling. Rates her pain 8 out of 10. (LI RAMIREZ DINKEY ENGINE FIRER/FIREMAN) Review of Systems: Review of Systems: Constitutional: Denies fever or chills. [] Eyes: Denies change in visual acuity. [] HENT: Denies nasal congestion or sore throat. [] Respiratory: Denies cough or shortness of breath. [] Cardiovascular: Denies chest pain or edema. [] GI: Denies abdominal pain, nausea, vomiting, bloody stools or diarrhea. [] : Denies dysuria. [] Musculoskeletal: Denies back pain or joint pain. Right fourth finger tip and left fourth and fifth finger tip painful burning. [] Integument: Denies rash. Skin irritation after using Carrillo on her fingertips. [] Neurologic: Denies headache, focal weakness or sensory changes. [] Endocrine: Denies polyuria or polydipsia. [] Lymphatic: Denies swollen glands. [] Psychiatric: Denies depression or anxiety. [] (LI RAMIREZ APRN) Heart Score: Risk Factors: Risk Factors: DM, Current or recent (<one month) smoker, HTN, HLP, family history of CAD, obesity. Risk Scores: Score 0 - 3: 2.5% MACE over next 6 weeks - Discharge Home Score 4 - 6: 20.3% MACE over next 6 weeks - Admit for Clinical Observation Score 7 - 10: 72.7% MACE over next 6 weeks - Early Invasive Strategies (LI RAMIREZ APRN) Allergies: Allergies: Allergies Coded Allergies Type Severity Reaction Last Updated Verified Penicillins Allergy Intermediate 08/06/14 No (LI RAMIREZ APRN) Physical Exam: PE: Constitutional: Well developed, well nourished, no acute distress, non-toxic appearance. [] HENT: Normocephalic, atraumatic, bilateral external ears normal, oropharynx moist, no oral exudates, nose normal. [] Eyes: PERRLA, EOMI, conjunctiva normal, no discharge. [] Neck: Normal range of motion, no tenderness, supple, no stridor. [] Cardiovascular:Heart rate regular rhythm, no murmur [] Lungs & Thorax: Bilateral breath sounds clear to auscultation [] Abdomen: Bowel sounds normal, soft, no tenderness, no masses, no pulsatile masses. [] Skin: Warm, dry, no erythema, no rash. Right ring finger tip superficial skin cracking and left fourth and fifth finger tip superficial skin cracking. [] Back: No tenderness, no CVA tenderness. [] Extremities: Right ring finger tip, left fourth and fifth finger tip tenderness, no cyanosis, no clubbing, ROM intact, no edema. [] Neurologic: Alert and oriented X 3, normal motor function, normal sensory function, no focal deficits noted. [] Psychologic: Affect normal, judgement normal, mood normal. [] (LI RAMIREZ DINKEY ENGINE FIRER/FIREMAN) Current Patient Data: Vital Signs: Vital Signs Date Time Temp Pulse Resp B/P (MAP) Pulse Ox O2 Delivery O2 Flow Rate FiO2 01/06/20 18:32 97.0 18 129/82 (98) 97 Room Air 97.0 ([facility] DINKEY ENGINE FIRER/FIREMAN) EKG: EKG: [] (LI RAMIREZ DINKEY ENGINE FIRER/FIREMAN) Radiology/Procedures: Radiology/Procedures: [] ([facility]) Course & Med Decision Making: Course & Med Decision Making Pertinent Labs and Imaging studies reviewed. (See chart for details) See HPI. Antibiotic ointment is placed over the areas and areas are dressed with bandages. Patient will keep the areas clean and dry. Alert and oriented x4. Skin pink warm and dry. Speaks in full complete sentences. [] (LI RAMIREZ APRN) Course & Med Decision Making I have reviewed the PA/BATTERY CONTAINER INSPECTOR's note and Plan of Care. I was available for consultation as needed during the patient's visit in the emergency department. I agree with the clinical impression, plans and disposition. (DIMITRI OMALLEY MD) Dragon Disclaimer: Dragon Disclaimer: This electronic medical record was generated, in whole or in part, using a voice recognition dictation system. (LI RAMIREZ APRN) Departure Departure Impression: Primary Impression: Skin irritation due to topical agent Disposition: HOME, SELF-CARE Condition: STABLE Referrals: NO PCP (PCP) Patient Instructions: Allergies, Generic Additional Instructions: Keep areas clean and dry. Keep bandages over the affected areas. Keep the antibiotic ointment over the affected areas. Watch for signs of infection. Scripts Bacitracin (BACITRACIN) 1 Each Packet 1 PACKET TP ONCE for 14 Days, #14 PACKET 0 Refills Prov: LI RAMIREZ APRN 01/06/20 Justicifation of Admission Dx: Justifications for Admission: Justification of Admission Dx: N/A (LI RAMIREZ APRN) LI RAMIREZ APRN Jan 06, 2020 20:09 DIMITRI OMALLEY MD Jan 06, 2020 20:11
[2020-01-06] MEDS ORDERED: NEOMY/BACITR/POLYMYXIN OINT PACKET. TP ONE (20:30)
== END 2020-01-06 20:15 | disposition home or self-care (01) ==
LOC: ER 17:55
DX: L98.8 Other specified disorders of the skin and subcutaneous tissue (principal); M79.644 Pain in right finger(s); R60.0 Localized edema
CPT/HCPCS: 99282

== ENCOUNTER 2020-05-01 16:09 | Emergency (ER) | payer OTHER ==
[~2020-05-01] VITALS: Ht 165.1 cm; Wt 78.1 kg
[~2020-05-01 16:09] MED LIST changes: +BACI1PAC4 TP
[2020-05-01] MEDS ORDERED: DEXAMETHASONE 4 MG TABLET PO ONE (17:00)
[2020-05-01 17:36] LABS: U PREG PATIENT NEGATIVE (NEG)
[2020-05-01] MEDS ORDERED: ALBU2.5V8 IH (17:52)
[2020-05-01] MEDS ORDERED: PRED20TA PO (17:52)
[2020-05-01] MEDS ORDERED: ALBU2.5V5 NEB (17:52)
--- NOTE | 2020-05-01 17:52 | PHYS DOC ---
Past Medical History Past Medical History: Bronchitis Additional Past Medical Histor: seasonal allergies Past Surgical History: Cholecystectomy Smoking Status: Never Smoker Alcohol Use: Occasionally Drug Use: None General Adult EDM: Chief Complaint: SHORTNESS OF BREATH HPI: HPI: Patient is a 30 year old [f__sex] who presents with [] Review of Systems: Review of Systems: Constitutional: Denies fever or chills. [] Eyes: Denies change in visual acuity. [] HENT: Denies nasal congestion or sore throat. [] Respiratory: Denies cough or shortness of breath. [] Cardiovascular: Denies chest pain or edema. [] GI: Denies abdominal pain, nausea, vomiting, bloody stools or diarrhea. [] : Denies dysuria. [] Musculoskeletal: Denies back pain or joint pain. [] Integument: Denies rash. [] Neurologic: Denies headache, focal weakness or sensory changes. [] Endocrine: Denies polyuria or polydipsia. [] Lymphatic: Denies swollen glands. [] Psychiatric: Denies depression or anxiety. [] Heart Score: Risk Factors: Risk Factors: DM, Current or recent (<one month) smoker, HTN, HLP, family history of CAD, obesity. Risk Scores: Score 0 - 3: 2.5% MACE over next 6 weeks - Discharge Home Score 4 - 6: 20.3% MACE over next 6 weeks - Admit for Clinical Observation Score 7 - 10: 72.7% MACE over next 6 weeks - Early Invasive Strategies Current Medications: Current Medications Medications (Trade) Dose Ordered Sig/Susana Start Time Stop Time Status Last Admin Dose Admin Dexamethasone (Decadron) 10 mg 1X ONCE 05/01/20 17:00 05/01/20 17:01 DC 05/01/20 17:02 10 MG Allergies: Allergies: Allergies Coded Allergies Type Severity Reaction Last Updated Verified Penicillins Allergy Intermediate 08/06/14 No Physical Exam: PE: Constitutional: Well developed, well nourished, no acute distress, non-toxic appearance. [] HENT: Normocephalic, atraumatic, bilateral external ears normal, oropharynx moist, no oral exudates, nose normal. [] Eyes: PERRLA, EOMI, conjunctiva normal, no discharge. [] Neck: Normal range of motion, no tenderness, supple, no stridor. [] Cardiovascular:Heart rate regular rhythm, no murmur [] Lungs & Thorax: Bilateral breath sounds clear to auscultation [] Abdomen: Bowel sounds normal, soft, no tenderness, no masses, no pulsatile masses. [] Skin: Warm, dry, no erythema, no rash. [] Back: No tenderness, no CVA tenderness. [] Extremities: No tenderness, no cyanosis, no clubbing, ROM intact, no edema. [] Neurologic: Alert and oriented X 3, normal motor function, normal sensory function, no focal deficits noted. [] Psychologic: Affect normal, judgement normal, mood normal. [] Current Patient Data: Labs: Laboratory Tests Test 05/01/20 17:12 Urine Test Negative (NEG) Vital Signs: Vital Signs Date Time Temp Pulse Resp B/P (MAP) Pulse Ox O2 Delivery O2 Flow Rate FiO2 05/01/20 16:41 97.3 97 18 139/83 (101) 100 Room Air 97.3 EKG: EKG: [] Radiology/Procedures: Radiology/Procedures: [] Course & Med Decision Making: Course & Med Decision Making Pertinent Labs and Imaging studies reviewed. (See chart for details) [] LoveByte Disclaimer: LoveByte Disclaimer: This electronic medical record was generated, in whole or in part, using a voice recognition dictation system. Departure Departure Impression: Primary Impression: Bronchitis Disposition: 01 DC HOME SELF CARE/HOMELESS Condition: STABLE Referrals: NO PCP (PCP) Patient Instructions: Acute Bronchitis, [id number] Scripts Prednisone (PREDNISONE) 20 Mg Tablet 2 TAB PO DAILY, #8 TAB Start this prescription tomorrow, Saturday05/02/2020 Prov: CHERRIE HENDRICKSON DO 05/01/20 Albuterol Sulfate (PROAIR HFA INHALER) 8.5 Gm Hfa.aer.ad 2 PUFF IH PRN Q4-6HRS PRN for wheezing, #1 INHALER 0 Refills Prov: CHERRIE HENDRICKSON DO 05/01/20 Albuterol Sulfate (ALBUTEROL SULFATE NEB SOLN) 2.5 Mg/3 Ml Vial.neb 1 VIAL NEB PRN Q4HRS PRN for WHEEZING, #50 VIAL Prov: CHERRIE HENDRICKSON DO 05/01/20 CHERRIE HENDRICKSON DO May 01, 2020 17:52
[2020-05-01 18:00] VITALS: BP 140/71
--- NOTE | 2020-05-01 18:56 | RAD ---
Chest, PA and Lateral: Technique: PA and lateral views of the chest were obtained. History: Cough, bronchitis. Comparison: 03/08/2018. Findings: The heart and pulmonary vasculature appear within normal limits. The lungs are clear. The pleural ma rgins are clear. Impression: No acute chest process is seen. Electronically signed by: Larry Stewart MD (05/01/2020 6:35 PM) [id number]
== END 2020-05-01 18:04 | disposition home or self-care (01) ==
LOC: ER 16:09
DX: J42 Unspecified chronic bronchitis (principal); R05 Cough; Z90.49 Acquired absence of other specified parts of digestive tract
CPT/HCPCS: 71046; 81025; 99283